=== PATIENT | male | born 2005 | race Caucasian/White ===

== ENCOUNTER 2024-05-12 04:44 | Emergency (ER) | payer SELFPAY ==
[2024-05-12] VITALS (17 sets, daily range): BP systolic 96–133; BP diastolic 50–89; PULSE 79–102; RESP 15–28; O2SAT 92–100; BMI 33.0
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
[2024-05-12] MEDS: morphine 4 mg/mL SDV 1 mL IVP ×2 (05:04→07:42)
[2024-05-12] MEDS: ondansetron 2 mg/ML SDV 2 mL 4 MG IVP ×3 (05:05→13:38)
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
[2024-05-12 05:14] LABS: Basophils # 0.1 10^3/uL (0.0-0.1); Basophils % 0.5 %; Eosinophils % 0.1 %; Hematocrit 43.1 % (37-53); Lymphocytes % 17.8 %; Mean Corpuscular HGB Conc 32.9 g/dL (30-55); Mean Corpuscular Hemoglobin 28.7 pg (27-33); Mean Corpuscular Volume 87.1 fl (82-101); Mean Platelet Volume 9.4 fL (7.4-10.4); Monocytes # 0.9 10^3/uL (0.2-0.9); Monocytes % 5.5 %; Neutrophils % 72.9 %; Nucleated Red Blood Cells % 0 %; Platelet Count 378 10^3/cmm (157-399); Red Blood Count 4.95 10^6/uL (3.85-5.65); Red Cell Distribution Width 13.2 % (12.1-15.1); White Blood Count 16.74 10^3/uL (4.5-13.0)
[2024-05-12] MEDS: iohexol 350 mg/mL 500 mL Btl (per mL) IV ×2 (05:17→11:28)
[2024-05-12] MEDS: tetracaine 0.5% Op Soln 4 mL Btl 1 DROP EYE-RIGHT (05:50)
[2024-05-12 06:02] LABS: Alanine Aminotransferase 65 U/L (0-41); Albumin Level 3.6 g/dL (3.5-5.2); Alcohol Level 167 mg/dL (0-10); Alkaline Phosphatase 90 U/L (40-130); Anion Gap 16.7 (5-19); Aspartate Amino Transferase 62 U/L (0-40); Blood Urea Nitrogen 5 mg/dL (6-20); Calcium 7.6 mg/dL (8.5-10.5); Carbon Dioxide 21 mmol/L (22-29); Chloride 100 mmol/L (98-107); Creatinine Clr Calc Pharmacy 178.1883; Globulin 2.6 g/dL (1.3-4.6); Glomerular Filtration Rate 123.2 mL/min (90-130); Glucose 120 mg/dL (65-115); Osmolality Calculated 276 mOsm/kg (285-295); Potassium 3.7 mmol/L (3.5-5.1); Sodium 134 mmol/L (136-145); Total Bilirubin 0.5 mg/dL (0.15-1.2); Total Protein 6.2 g/dL (6.6-8.7)
[2024-05-12] MEDS: fluorescein 1 mg Strip EYE-RIGHT (06:13)
--- NOTE | 2024-05-12 06:54 | PC.NURSE ---
Marta STOKES and this preceptor transferred care to Ashely STOKES at shift change.
[2024-05-12 07:11] LABS: Add Urine Microscopic? YES; Bilirubin Urine Neg (Negative); Blood Urine 3+ (Negative); Glucose Urine UA Norm (Normal); Ketones Urine Negative (Negative); Leukocyte Esterase Urine Negative (Negative); Nitrate Urine Negative (Negative); Protein Urine Trace (Negative); RBC Urine 0-4 /hpf (0-2); Specific Gravity, Urine 1.005 (1.005-1.030); Urine Appearance Clear (CLEAR); Urine Color Yellow (Yellow); Urobilinogen Urine Norm (Negative); WBC Urine RARE /hpf (0-5); pH Urine 5 (5-7)
[2024-05-12 07:12] LABS: Add Urine Culture? No; Amphetamines Screen Urine Negative (Negative); Bacteria Urine TRACE /hpf; Barbiturates Screen Urine Negative (Negative); Benzodiazepines Screen Urine Negative (Negative); Cocaine Screen Urine Negative (Negative); Opiate Screen Urine Positive (Negative); PCP Screen Urine Negative (Negative); THC Screen Urine Negative (Negative)
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
[2024-05-12] MEDS: sodium chloride 0.9% 500 ML 999 ML IV (10:58)
[2024-05-12] MEDS: ketorolac 30 mg/mL INJ 15 MG IVP (13:39)
== END 2024-05-12 13:53 ==
PROVIDERS: Emergency Medicine; Emergency Provider Emergency Medicine
DX: S05.02XA Injury of conjunctiva and corneal abrasion without foreign body, left eye, initial encounter (principal); S42.402A Unspecified fracture of lower end of left humerus, initial encounter for closed fracture; S27.321A Contusion of lung, unilateral, initial encounter; S43.401A Unspecified sprain of right shoulder joint, initial encounter; S22.059A Unspecified fracture of T5-T6 vertebra, initial encounter for closed fracture; S10.91XA Abrasion of unspecified part of neck, initial encounter; S20.312A Abrasion of left front wall of thorax, initial encounter; S00.81XA Abrasion of other part of head, initial encounter; V59.9XXA Occupant (driver) (passenger) of pick-up truck or van injured in unspecified traffic accident, initial encounter
CPT/HCPCS: 36415; 70450; 70498; 71045; 71260; 72125; 73030; 73070; 73080; 74177; 80053; 80306; 80307; 81001; 85025; 96374; 96375; 96376; 99285; J1885; J2270; J2405; J7040